=== PATIENT | female | born 1995 | race Caucasian/White ===

== ENCOUNTER → 2024-09-07 07:31 | Outpatient (CLI) | payer OTHER, SELFPAY ==
--- NOTE | 2024-09-07 07:38 | DI.MRI.S_ITS ---
PROCEDURE: MR ANKLE LT WO CON INDICATIONS: ANKLE INJURY TECHNIQUE: Noncontrast sagittal T1 spin echo and T2 fast spin echo with fat saturation, axial proton density fast spin echo and T2 fast spin echo with fat saturation, coronal T1 spin echo and T2 fast spin echo with fat saturation through the ankle/hindfoot. COMPARISON: None. FINDINGS: Image quality: Excellent Tendons: Moderate tenosynovitis of the posterior tibialis. Mild tenosynovitis of the flexor digitorum longus. The flexor hallucis longus is unremarkable. The extensor tendons are unremarkable. Longitudinal split tear of the peroneal brevis. The peroneal longus is intact. Mild tendinosis of the peroneal tendons. Mild tendinosis of the distal Achilles tendon, with low grade interstitial tear at the calcaneal insertion. Ligaments: The anterior and the posterior tibiofibular ligaments are intact. Low-grade tear of the anterior talofibular ligament. The posterior talofibular ligament is intact. Sprain of the calcaneofibular ligament. Sprain of the deep portion deltoid ligament. Sinus tarsi: No fibrosis Plantar fascia: Mild thickening of the central cord, raising concern for plantar fasciitis. Muscle: Normal in signal Bones: Mild marrow edema of the medial malleolus, favor reactive. Mild marrow edema of the lateral aspect of the tibial plafond, favor reactive as well. Marked marrow edema of the medial aspect of the talus neck, without fracture line, likely representing marrow contusion. There is a 7 mm mildly T2 hyperintense lesion containing fat in the calcaneus body, nonspecific but favors benign etiology. Small amount of fluid in the talonavicular joint. Moderate tibiotalar and posterior subtalar effusion. IMPRESSION: 1. Moderate tenosynovitis of posterior tibialis. 2. Longitudinal split tear of the peroneal brevis. 3. Low-grade interstitial tear of the distal Achilles tendon. 4. Low-grade tear of the anterior talofibular ligament. Additional sprain of the medial and lateral ankle ligament. 5. Findings concerning for mild plantar fasciitis. 6. Mild reactive marrow edema of the medial malleolus and the lateral aspect of talus plafond. 7. Marked marrow contusion of the medial aspect talus neck. No acute fracture. Dictated by: Priscila Carlos M.D. on 09/09/2024 at 15:48 Approved by: Priscila Carlos M.D. on 09/09/2024 at 16:00
== END ==
PROVIDERS: PCP Student in an Organized Health Care Education/Training Program; Referring Provider Student in an Organized Health Care Education/Training Program; Visit Provider Student in an Organized Health Care Education/Training Program
DX: S96.812A Strain of other specified muscles and tendons at ankle and foot level, left foot, initial encounter (principal); S93.492A Sprain of other ligament of left ankle, initial encounter; S86.012A Strain of left Achilles tendon, initial encounter; S90.02XA Contusion of left ankle, initial encounter; M65.962 Unspecified synovitis and tenosynovitis, left lower leg; S86.302D Unspecified injury of muscle(s) and tendon(s) of peroneal muscle group at lower leg level, left leg, subsequent encounter
CPT/HCPCS: 73721